=== PATIENT | female | born 1975 | race Caucasian/White ===

== ENCOUNTER → 2023-05-12 13:39 | Outpatient (REF) | payer OTHER, SELFPAY | LOC: MRI 3T 13:39 | PROVIDERS: ATTENDING PHYSICIAN Physical Medicine & Rehabilitation; FAMILY PHYSICIAN Physician Assistant | DX: S73.191A Other sprain of right hip, initial encounter (principal) | CPT/HCPCS: 27095; 73525; 73722 ==

== ENCOUNTER → 2023-06-19 19:46 | Outpatient (REF) | payer OTHER, SELFPAY | LOC: WDC 19:46 | PROVIDERS: ATTENDING PHYSICIAN Nurse Practitioner Family; FAMILY PHYSICIAN Physician Assistant | DX: Z12.31 Encounter for screening mammogram for malignant neoplasm of breast (principal) | CPT/HCPCS: 77063; 77067 ==

== ENCOUNTER 2024-04-12 06:10 | Day surgery (SDC) | payer BC, SELFPAY | END 2024-04-12 08:56 | disposition home or self-care (01) | LOC: GI 06:10 | PROVIDERS: ATTENDING PHYSICIAN Internal Medicine | DX: Z12.11 Encounter for screening for malignant neoplasm of colon (principal) | CPT/HCPCS: G0121 ==

== ENCOUNTER → 2024-07-26 08:11 | Outpatient (REF) | payer BC, SELFPAY | LOC: HWRAD 08:11 | PROVIDERS: ATTENDING PHYSICIAN Nurse Practitioner Family; FAMILY PHYSICIAN Physician Assistant | DX: N93.9 Abnormal uterine and vaginal bleeding, unspecified (principal) | CPT/HCPCS: 76830; 76856 ==

== ENCOUNTER → 2024-10-26 15:41 | Outpatient (REF) | payer BC, SELFPAY | LOC: HWWDC 15:41 | PROVIDERS: ATTENDING PHYSICIAN Nurse Practitioner Family; FAMILY PHYSICIAN Physician Assistant | DX: Z12.31 Encounter for screening mammogram for malignant neoplasm of breast (principal) | CPT/HCPCS: 77063; 77067 ==

== ENCOUNTER 2024-10-28 06:32 | Day surgery (SDC) | payer BC, SELFPAY ==
[2024-10-22 11:30] LABS: Hematocrit 41.3 % (37.0-47.0); Hemoglobin 13.8 g/dL (12.0-16.0); Mean Corp Hgb Conc. 33.4 g/dL (33.0-37.0); Mean Corpuscular Volume 93.0 fL (81.0-99.0); Nucleated Red Blood Cells % 0 %; Platelet Count 188 10^3/uL (130-400); Red Cell Dist. Width 12.6 % (11.5-14.5)
[2024-10-22 12:30] LABS: HCG, Serum Qualitative Screen Negative
[2024-10-22 12:31] VITALS: BMI 19.4
--- NOTE | 2024-10-26 17:36 | HPS.HSE ---
Family Physician
-
Family Physician: Gabriela Phillips
Chief Complaint
-
hysteroscopy D&C
History of Present Illness
Patient is a 48yo who presents for hysteroscopy D&C. Patient was having spotting after her period and pelvic US was ordered that showed uterus 10.2x5.1x5.9cm. The endometrial stripe was 1.7cm. There is a small hypoechoic mass measuring
0.7x0.4x0.5cm towards the fundus that is a probable endometrial polyp vs fibroid. Patient reports the last couple of months she has not had any of the spotting. Previously her period would stop and then a few days later, she would get a few days of
spotting or sometimes bleeding like a period. Her periods are otherwise normal and are every month.
PMHx: denies
Meds: adderall 20mg XR prn
Surghx: abdominoplasty, breast augmentation, appendectomy, tonsillectomy
NKDA
Socialhx: occ etoh, denies tobacco or illicit drug use
Famhx: dad w/ lung
OBHx: , SVDx4
Gynhx: history of abnormal Pap at age 19 w/ LEEP no further abnormal Pap, denies hx STDs
Medical History
Past Medical History
Past Medical History: Reports None
Past Surgical History: Reports Appendectomy, Tonsilectomy and Other
Social History
Tobacco: Non-smoker
Alcohol: Occasional
Drug: None
Family History
Family History: Cancer
Allergies / Home Medications
Allergies reflects when Allergies were last updated in [facility].
Home Medications with original date entered in [facility]
Allergy/Medication List:
NKDA
Meds: Adderall 20mg XR prn
Review of Systems
-
A 12 point ROS was completed and negative except as noted: Yes
Physical Exam
Physical Exam
General: Well Developed and Well Nourished
HEENT: NormoCephalic
Respiratory: Non Labored Respirations
Cardiac: Regular Rhythm
Skin: Warm and Dry
Neuro: Awake, Alert and Oriented
Psych: Calm
Laboratory Results
-
10/22/24 09:13
Impression/Plan
-
IMPRESSION:
Patient is a 48yo who presents for hysteroscopy D&C
PLAN:
- Pelvic US revealed possible endometrial polyp vs fibroid. Recommend hysteroscopy D&C for evaluation. Reviewed if there is a polyp or fibroid in the endometrial cavity, it will be removed during the procedure. There is also a possibility that there
is not anything in the endometrial cavity. If that is the case, just a sample of the endometrium will be taken
- Risks, benefits and alternatives reviewed including bleeding, infection, damage to surrounding structures, uterine perforation, and need for further operations. Patient consented for a blood transfusion. Consents signed
- Postop expectations reviewed
[2024-10-28] VITALS (7 sets, daily range): BP systolic 99–116; BP diastolic 57–74; BMI 20.8
[2024-10-28 09:18] LABS: HCG, Urine Qualitative Screen Negative
--- NOTE | 2024-10-28 18:46 | OR.RPT ---
Operative Report
Operative Report
Procedure date: 10/28/2024
Preop diagnosis:
- Endometrial polyp
- Abnormal uterine bleeding
Postop diagnosis
- Abnormal uterine bleeding
Procedure
- Hysteroscopy, dilation and curettage
Surgeon: Jane
Anesthesia: General
EBL: 5cc
Complications: none
Findings
- Normal appearing external genitalia
- Cervix without lesions or masses
- Bimanual exam with normal sized anteverted uterus, no adnexal masses
- Hysteroscopic evaluation with bilateral tubal ostia visualized. Normal appearing endometrium. No endometrial polyp.
Pathology: endometrial curettings
Indication:
Patient is a 48yo who presents for hysteroscopy D&C. She had a pelvic ultrasound that showed a possible endometrial polyp after she had spotting after her period. Given finding of an endometrial polyp, it was recommended to proceed with
hysteroscopy, dilation and curettage with polypectomy. Risks, benefits and alternatives to the procedure were discussed and all questions answered. Consents were signed.
Procedure:
Patient was taken to the operating room and placed under general anesthesia. She was placed in the dorsal lithotomy position with Moises type stirrups. She was prepped and draped in the normal sterile fashion. Bimanual exam revealed the
aforementioned findings. A Beckham retractor was placed in the anterior portion of the vagina and a Beckham retractor in the posterior aspect of the vagina revealing good visualization the cervix. The anterior lip of the cervix was grasped with a single
tooth tenaculum. The uterus was sounded to 7cm. The cervix was sequentially dilated to accommodate the MyoSure hysteroscope. The hysteroscope was advanced under direct visualization. Hysteroscopic evaluation revealed the aforementioned findings. No
endometrial polyp was visualized. The hysteroscope was removed. A size 0 curette was introduced into the cervix. The uterus was curetted in a clockwise fashion until uterine cry was felt in all quadrants. Endometrial curettings were sent to
pathology for evaluation. The tenaculum was removed from the cervix and good hemostasis was noted. All instruments were removed from the vagina.
The patient tolerated the procedure well. All sponge and instrument counts were correct x2. She was taken to PACU in stable condition.
== END 2024-10-28 12:42 | disposition home or self-care (01) ==
LOC: SDS 06:32
PROVIDERS: ATTENDING PHYSICIAN Student in an Organized Health Care Education/Training Program; FAMILY PHYSICIAN Physician Assistant
DX: N85.8 Other specified noninflammatory disorders of uterus (principal); N93.9 Abnormal uterine and vaginal bleeding, unspecified
CPT/HCPCS: 58558; 36415; 81025; 84703; 85025; 86850; 86900; 86901; 88305